=== PATIENT | male | born 1975 | race Caucasian/White ===

== ENCOUNTER 2017-07-14 14:40 | Inpatient (IN) | payer OTHER, MEDICAID ==
[~2017-07-14] VITALS: Ht 172.7 cm; Wt 68.0 kg
[2017-07-14 20:20] LABS: BASOPHILS % 0.6 % (0.0-2.0); EOSINOPHILS % 3.2 % (0.0-5.0); HEMATOCRIT. 40.1 % (42.0-52.0); HEMOGLOBIN. 13.7 g/dL (14.0-18.0); LYMPHOCYTES % 38.3 % (20.0-50.0); MEAN CORPUSCULAR HEMOGLOBIN 31.2 pg (28.0-32.0); MEAN CORPUSCULAR VOLUME 91.2 fL (80.0-94.0); MEAN PLATELET VOLUME 6.3 fl (7.4-10.4); MONOCYTES % 12.8 % (2.0-8.0); NEUTROPHILS % 45.1 % (40.0-76.0); PLATELET 227 x1000/uL (130-400); RED BLOOD CELL COUNT 4.39 mill/uL (4.7-6.1); RED CELL DISTRIBUTION WIDTH 15.4 % (11.6-14.6)
[2017-07-14 20:27] LABS: PROTHROMBIN TIME 10.8 sec (9.4-11.6)
[2017-07-14 20:33] LABS: CHLORIDE 105 mEq/L (98-107); ETHANOL BLOOD 233 mg/dL
[2017-07-14] MEDS ORDERED: SODIUM CHLORIDE 0.9% 1,000 ML IV ONE (21:16)
[2017-07-14] MEDS ORDERED: POTASSIUM CHLORIDE 20MEQ TABLET SR PO ONE (21:30)
[2017-07-14] MEDS ORDERED: POTASSIUM CHLORIDE INJ 40 MEQ in DEXT 5% WATER 500 ML IV ONE (21:30)
[2017-07-14 21:33] LABS: CLARITY URINE CLEAR (CLEAR); COLOR URINE YELLOW (YELLOW); KETONES URINE NEGATIVE (NEGATIVE); LEUKOCYTE ESTERASE URINE NEGATIVE (NEGATIVE); NITRITE URINE NEGATIVE (NEGATIVE); OCCULT BLOOD URINE NEGATIVE (NEGATIVE); PH URINE 5.5 (4.5-8.0); PROTEIN URINE TRACE (NEGATIVE); SPECIFIC GRAVITY URINE 1.014 (1.005-1.030); UROBILINOGEN URINE 0.2 E.U./dL (0.2-1.0)
[2017-07-14 21:44] LABS: *AMPHETAMINES SCREEN URINE PRESUMTIVE POSITIVE (NEGATIVE); *BARBITURATES SCREEN URINE PRESUMTIVE POSITIVE (NEGATIVE); *BENZODIAZEPINES SCREEN URINE PRESUMTIVE POSITIVE (NEGATIVE); *COCAINE SCREEN URINE NEGATIVE (NEGATIVE); CANNABINOID URINE SCREEN NEGATIVE (NEGATIVE); METHADONE URINE SCREEN NEGATIVE (NEGATIVE); OPIATES URINE SCREEN NEGATIVE (NEGATIVE); PHENCYCLIDINE URINE SCREEN NEGATIVE (NEGATIVE)
[2017-07-14] MEDS ORDERED: LEVOFLOXACIN 750MG PREMIX 150 ML IV ONE (22:00)
[2017-07-15] VITALS (7 sets, daily range): BP systolic 112–143; BP diastolic 68–101
[2017-07-15] MEDS ORDERED: ACETAMINOPHEN 650MG SUPP PR PRN (00:15)
[2017-07-15] MEDS ORDERED: MAGNESIUM/ALUMINUM HYDROXIDE/SIMETHICONE 30ML UDC PO PRN (00:15)
[2017-07-15] MEDS ORDERED: ACETAMINOPHEN 325MG TABLET PO PRN (00:15)
[2017-07-15] MEDS ORDERED: GUAIFENESIN 200MG/10ML SUGAR FREE UDC PO PRN (00:15)
[2017-07-15] MEDS ORDERED: ONDANSETRON HCL 4MG/2ML VIAL IV PRN (00:15)
[2017-07-15] MEDS ORDERED: NA PHOS,M-B/NA PHOS,DI-BA ENEMA 118ML PR PRN (00:15)
[2017-07-15] MEDS ORDERED: IPRATROPIUM/ALBUTEROL 0.5-3(2.5)MG/3ML NEB INH PRN (00:15)
[2017-07-15] MEDS ORDERED: DIPHENHYDRAMINE 50MG/ML VIAL IV PRN (00:15)
[2017-07-15] MEDS ORDERED: ACETAMINOPHEN 650MG/20.3ML UDC GT PRN (00:15)
[2017-07-15] MEDS ORDERED: CLONIDINE 0.1MG TABLET PO PRN (00:15)
[2017-07-15] MEDS ORDERED: DOCUSATE SODIUM 100MG CAPSULE PO PRN (00:15)
[2017-07-15] MEDS: MORPHINE SULFATE 4 MG/ML CPJ (NOT FOR IM USE) IV PRN ×4 (01:05→22:24)
[2017-07-15] MEDS: LORAZEPAM 1MG TABLET PO PRN ×2 (01:41→11:02)
[2017-07-15] MEDS ORDERED: AMPH30CA PO (02:24)
[2017-07-15] MEDS ORDERED: MORP30TA54 PO (02:24)
[2017-07-15] MEDS ORDERED: LISD60CA PO (02:24)
[2017-07-15] MEDS ORDERED: LAM1 PO (02:24)
[2017-07-15] MEDS ORDERED: DIAZ10TA4 PO (02:24)
[2017-07-15] MEDS: HYDROCODONE/ACETAMINOPHEN 5/325MG TABLET PO PRN ×4 (02:49→20:45)
[2017-07-15] MEDS: CHLORDIAZEPOXIDE 25MG CAPSULE PO SCH ×3 (06:41→21:18)
[2017-07-15] MEDS: SODIUM CHLORIDE 0.9% INJ 3ML FLUSH IVF SCH ×3 (06:47→20:44)
[2017-07-15 07:58] LABS: CHLORIDE 104 mEq/L (98-107)
[2017-07-15 08:08] LABS: CREATINE KINASE 137 IU/L (39-308); HDL CHOLESTEROL 92 mg/dL (40-59); LDL CHOLESTEROL 48 mg/dL (5-100)
[2017-07-15] MEDS: ENOXAPARIN 40MG/0.4ML SYR SUBCUT SCH (08:51)
[2017-07-15] MEDS: FUROSEMIDE 40MG/4ML VIAL IV SCH (08:54)
[2017-07-15] MEDS ORDERED: POTASSIUM CHLORIDE 20MEQ TABLET SR PO SCH ×2 (09:15→13:00)
[2017-07-15 12:31] LABS: T4 FREE 0.79 ng/dL (0.76-1.46)
[2017-07-15 15:45] LABS: BASOPHILS % 0.7 % (0.0-2.0); EOSINOPHILS % 1.8 % (0.0-5.0); HEMATOCRIT. 35.5 % (42.0-52.0); HEMOGLOBIN. 12.3 g/dL (14.0-18.0); LYMPHOCYTES % 38.1 % (20.0-50.0); MEAN CORPUSCULAR HEMOGLOBIN 31.3 pg (28.0-32.0); MEAN CORPUSCULAR VOLUME 90.2 fL (80.0-94.0); MEAN PLATELET VOLUME 6.6 fl (7.4-10.4); MONOCYTES % 15.9 % (2.0-8.0); NEUTROPHILS % 43.5 % (40.0-76.0); PLATELET 203 x1000/uL (130-400); RED BLOOD CELL COUNT 3.93 mill/uL (4.7-6.1); RED CELL DISTRIBUTION WIDTH 15.3 % (11.6-14.6)
[2017-07-15 15:54] LABS: CHLORIDE 97 mEq/L (98-107)
[2017-07-15 16:02] LABS: CREATINE KINASE 138 IU/L (39-308); CREATINE KINASE MB FRACTION 2.3 ng/mL (0.5-3.6)
[2017-07-15] MEDS ORDERED: IOHEXOL-350 100 ML BOTTLE ONE (20:07)
[2017-07-15] MEDS: LAMOTRIGINE 100MG TABLET PO SCH (21:17)
[2017-07-15] MEDS ORDERED: LEVOFLOXACIN 500MG PREMIX 100 ML IV SCH (23:00)
[2017-07-16] VITALS: BP 109/68
[2017-07-16] MEDS: HYDROCODONE/ACETAMINOPHEN 5/325MG TABLET PO PRN ×2 (02:30→08:53)
[2017-07-16 04:00] VITALS: BP 131/90
[2017-07-16] MEDS: SODIUM CHLORIDE 0.9% INJ 3ML FLUSH IVF SCH ×2 (04:55→14:31)
[2017-07-16] MEDS: MORPHINE SULFATE 4 MG/ML CPJ (NOT FOR IM USE) IV PRN ×2 (04:55→11:41)
[2017-07-16] MEDS: CHLORDIAZEPOXIDE 25MG CAPSULE PO SCH ×2 (04:56→14:29)
[2017-07-16 08:00] VITALS: BP 100/67
[2017-07-16 08:00] LABS: BASOPHILS % 0.5 % (0.0-2.0); EOSINOPHILS % 2.7 % (0.0-5.0); HEMATOCRIT. 37.9 % (42.0-52.0); HEMOGLOBIN. 12.9 g/dL (14.0-18.0); LYMPHOCYTES % 38.9 % (20.0-50.0); MEAN CORPUSCULAR VOLUME 90.9 fL (80.0-94.0); MEAN PLATELET VOLUME 7.1 fl (7.4-10.4); MONOCYTES % 14.1 % (2.0-8.0); NEUTROPHILS % 43.8 % (40.0-76.0); PLATELET 218 x1000/uL (130-400); RED BLOOD CELL COUNT 4.17 mill/uL (4.7-6.1); RED CELL DISTRIBUTION WIDTH 15.1 % (11.6-14.6)
[2017-07-16 08:03] LABS: CHLORIDE 100 mEq/L (98-107)
[2017-07-16 08:16] LABS: CREATINE KINASE MB FRACTION 1.1 ng/mL (0.5-3.6); HDL CHOLESTEROL 102 mg/dL (40-59); LDL CHOLESTEROL 56 mg/dL (5-100)
[2017-07-16] MEDS: FUROSEMIDE 40MG/4ML VIAL IV SCH (08:47)
[2017-07-16] MEDS: LAMOTRIGINE 100MG TABLET PO SCH (08:47)
[2017-07-16] MEDS: ENOXAPARIN 40MG/0.4ML SYR SUBCUT SCH (08:48)
[2017-07-16] MEDS ORDERED: AMPHET ASP PO SCH (09:45)
[2017-07-16] MEDS ORDERED: [UNRECOGNIZED DRUG - OTHER] PO SCH (09:45)
[2017-07-16] MEDS ORDERED: AMPHET PO SCH (09:45)
[2017-07-16] MEDS ORDERED: D AMPHET PO SCH (09:45)
[2017-07-16] MEDS ORDERED: LISDEXAMFETAMINE DIMESYLATE 60 MG PO SCH (09:45)
[2017-07-16] MEDS ORDERED: KETOROLAC 30MG/ML VIAL IV SCH (10:00)
[2017-07-16] MEDS ORDERED: LACTULOSE 20G/30ML UDC PO SCH (10:00)
[2017-07-16] MEDS ORDERED: IBUPROFEN 100MG/5ML UDC PO PRN (10:00)
[2017-07-16] MEDS ORDERED: MORPHINE SULFATE 30MG TABLET SR PO SCH (10:00)
[2017-07-16 12:00] VITALS: BP 122/88
[2017-07-16] MEDS ORDERED: CLONAZEPAM 1MG TABLET PO SCH (14:00)
[2017-07-16 16:00] VITALS: BP 129/90
[2017-07-16 16:27] VITALS: BP 130/90
[2017-07-17] MEDS ORDERED: LEVOFLOXACIN 250MG TABLET PO SCH (21:00)
== END 2017-07-16 18:00 | disposition home or self-care (01) | DRG 243 ==
LOC: ER 15:18 → 7WST 22:08 → ENRESERV 22:42
PROVIDERS: ADMIT Family Medicine; ATTEND Family Medicine
DX: K21.9 Gastro-esophageal reflux disease without esophagitis (principal); E44.0 Moderate protein-calorie malnutrition; F13.20 Sedative, hypnotic or anxiolytic dependence, uncomplicated; F10.10 Alcohol abuse, uncomplicated; I10 Essential (primary) hypertension; F17.200 Nicotine dependence, unspecified, uncomplicated; R21 Rash and other nonspecific skin eruption; J45.909 Unspecified asthma, uncomplicated; F42.9 Obsessive-compulsive disorder, unspecified; E87.6 Hypokalemia; F15.90 Other stimulant use, unspecified, uncomplicated; F19.10 Other psychoactive substance abuse, uncomplicated; Z87.01 Personal history of pneumonia (recurrent); Z59.0 Homelessness; Z79.899 Other long term (current) drug therapy; Z88.8 Allergy status to other drugs, medicaments and biological substances
CPT/HCPCS: 36415; 71045; 71275; 74018; 80048; 80053; 80061; 80305; 81003; 82550; 82553; 83036; 83690; 83880; 84132; 84439; 84443; 84484; 85025; 85379; 85610; 87040; 93005; 93306; 93970; 96365; 96375; 99285; A6261; G0482; J1650; J1885; J1940; J1956; J2270; J3480; J7030; J7060; Q9967

== ENCOUNTER 2017-07-17 16:15 | Emergency (ER) | payer MEDICAID ==
[~2017-07-17] VITALS: Ht 177.8 cm; Wt 68.0 kg
[~2017-07-17 16:15] MED LIST: AMPH30CA PO; DIAZ10TA4 PO; LAM1 PO; LISD60CA PO; MORP30TA54 PO
[2017-07-17 16:19] VITALS: BP 112/72
== END 2017-07-17 16:46 | disposition left against medical advice (07) ==
LOC: ER 16:22
DX: R07.9 Chest pain, unspecified (principal); Z53.21 Procedure and treatment not carried out due to patient leaving prior to being seen by health care provider